=== PATIENT | male | born 1995 | race Caucasian/White ===

== ENCOUNTER 2016-08-17 20:29 | Emergency (ER) | payer OTHER | END 2016-08-17 23:06 | disposition home or self-care (01) | LOC: FER 20:29 | DX: S29.012A Strain of muscle and tendon of back wall of thorax, initial encounter (principal); S39.012A Strain of muscle, fascia and tendon of lower back, initial encounter; M41.9 Scoliosis, unspecified; F17.210 Nicotine dependence, cigarettes, uncomplicated; Z79.899 Other long term (current) drug therapy; Z88.6 Allergy status to analgesic agent; V49.50XA Passenger injured in collision with unspecified motor vehicles in traffic accident, initial encounter; Y92.410 Unspecified street and highway as the place of occurrence of the external cause | CPT/HCPCS: J1885 ==

== ENCOUNTER → 2021-08-29 18:52 | Emergency (ER) | payer OTHER | END | disposition home or self-care (01) | LOC: FER 18:52 | DX: M54.9 Dorsalgia, unspecified (principal); Z53.8 Procedure and treatment not carried out for other reasons ==